=== PATIENT | male | born 1950 | race Caucasian/White ===

== ENCOUNTER 2018-05-06 21:39 | Emergency (ER) | payer OTHER ==
[2018-05-06 22:35] VITALS: BP 148/84
== END 2018-05-06 22:35 | disposition home or self-care (01) ==
LOC: ED 21:39 → EDBD 21:39 → ED 22:35
DX: K02.9 Dental caries, unspecified (principal); K08.89 Other specified disorders of teeth and supporting structures; R73.03 Prediabetes
CPT/HCPCS: J1885